=== PATIENT | female | born 1980 | race Caucasian/White ===

== ENCOUNTER 2018-09-16 02:32 | Emergency (ER) | payer BC ==
[~2018-09-16] VITALS: Ht 162.6 cm; Wt 64.0 kg
[2018-09-16 02:45] VITALS: BP_SYST 112
[2018-09-16] MEDS ORDERED: OMEP20CA10 PO (02:58)
[2018-09-16] MEDS ORDERED: LEVO100T9 PO (02:58)
[2018-09-16 03:46] VITALS: BP_SYST 114
== END 2018-09-16 03:46 | disposition home or self-care (01) ==
LOC: SED 02:32
DX: K21.9 Gastro-esophageal reflux disease without esophagitis (principal); Z88.2 Allergy status to sulfonamides; Z79.899 Other long term (current) drug therapy
CPT/HCPCS: 93005; 99283

== ENCOUNTER 2020-02-10 01:52 | Emergency (ER) | payer BC, OTHER ==
[~2020-02-10] VITALS: Ht 162.6 cm; Wt 69.9 kg
[~2020-02-10 01:52] MED LIST: LEVO100T9 PO; OMEP20CA11 PO
[2020-02-10 02:05] VITALS: BP_SYST 123
--- NOTE | 2020-02-10 02:05 | NUR ---
Patient to ER bed 4 to gown for evaluation. Side rails up.
--- NOTE | 2020-02-10 02:07 | NUR ---
pt a&o x4 c/o of upper epigastric pain for the past 3 days that has traveled to her lower abdomen and radiates to her back. pt rates her pain a 6 out of 10. pt has been nauseous and vomiting for the past hour. pt took pantoprozole, maalox, and advil around 6pm. pt denies trouble urinating, burning while urinating.
--- NOTE | 2020-02-10 02:10 | NUR ---
AYANNA Lieberman at bedside examining patient.
--- NOTE | 2020-02-10 02:30 | NUR ---
urine test negative.
--- NOTE | 2020-02-10 02:45 | NUR ---
Patient transported to radiology via walking, accompanied by
[2020-02-10] MEDS ORDERED: KETOROLAC TROMETHAMINE 30 MG VIAL IM ONE (03:45)
[2020-02-10] MEDS ORDERED: ONDANSETRON 4 MG ODT TAB PO ONE (03:45)
--- NOTE | 2020-02-10 03:46 | NUR ---
PT MEDICATED PER MD ORDER. PT TOLERATED WELL.
[2020-02-10 03:55] LABS: BILIRUBIN,URINE 1+ (NEGATIVE); BLOOD, URINE 1+ (NEGATIVE); CLARITY/URINE CLEAR (CLEAR); COLOR,URINE YELLOW (YELLOW); GLUCOSE,URINE NEGATIVE (NEGATIVE); KETONES,URINE 1+ (NEGATIVE); LEUKOCYTE ESTERASE ,URINE TRACE (NEGATIVE); NITRITE, URINE NEGATIVE (NEGATIVE); PROTEIN URINE NEGATIVE (NEGATIVE); UROBILINOGEN,URINE 0.2 (0.2-1.0)
[2020-02-10 04:01] LABS: BACTERIA,URINE FEW /HPF (None Seen)
[2020-02-10 04:05] VITALS: BP_SYST 128
--- NOTE | 2020-02-10 04:05 | NUR ---
Patient given written and verbal discharge instructions and verbalizes understanding. ER MD discussed with patient the results and treatment provided. Patient in stable condition. ID arm band removed. NO Rx given. Patient educated on pain management and to follow up with PMD. Pain Scale 3/10. Opportunity for questions provided and answered. Medication side effect fact sheet provided.
== END 2020-02-10 04:05 | disposition home or self-care (01) ==
LOC: SED 01:52
DX: R10.13 Epigastric pain (principal); R11.2 Nausea with vomiting, unspecified; R19.7 Diarrhea, unspecified; Z88.2 Allergy status to sulfonamides
CPT/HCPCS: 74176; 81000; 81025; 96372; 99284; J1885; Q0162